=== PATIENT | male | born 1970 | race Caucasian/White ===

== ENCOUNTER 2020-05-15 10:11 | Emergency (ER) | payer BC ==
--- NOTE | 2020-05-15 11:04 | TELE ---
HPI Do you have fever,cough or shortness of breath?: No - General Reason For Visit: COLVID 19 TEST History Source: Patient Exam Limitations: No Limitations - History of Present Illness 05/15/20 11:01 Patient is a 49-year-old male who participated in a virtual urgent care visit for Covid testing. He states his daughter was in school and was in contact with somebody with Covid and then was at his house the same day. He is concerned because he has now had Covid exposure. The patient has a history of non- Hodgkin's lymphoma 15 years ago but states he is now cured. He denies any symptoms at all. He denies any recent travel outside of the in the last 30 days, or outside of [facility] within the last 15 days. The patient denies other medical history or allergies to medications. Review of Systems - Review of Systems Comments:: 05/15/20 11:02 - Review of Systems Able to Perform ROS?: Yes Constitutional: No: Fever, Chills, Loss of Appetite, Night Sweats, Weakness; positive: Covid exposure, Covid testing HEENTM: No: Eye Pain, Vision changes, Ear Pain, Throat Pain, Throat Swelling, Mouth Pain, Difficulty Swallowing Respiratory: No: Cough, Shortness of Breath, Wheezing, Sputum Production Cardiac (ROS): No: Chest Pain, Chest Tightness, Palpitations, Irregular Heart Beat, Edema ABD/GI: No: Nausea, Vomiting, Abdominal Pain, Diarrhea : No Dysuria, No Hematuria, No Frequency, No Urgency Musculoskeletal: No: Muscle Pain, Back Pain, Joint Pain, Muscle Weakness, Neck Pain Integumentary: No: Lesions, Rash Neurological: No: Headache, Numbness, Tingling, Weakness, Speech Difficulties *Physical Exam - Physical Exam 05/15/20 11:02 - Physical Exam General Appearance: Nourished, Appropriately Dressed, No Distress HEENT: EOMI, Normal Voice, Hearing Grossly Normal Neck: No Decreased range of motion Respiratory/Chest: Normal chest excursion appreciated, No Accessory Muscle Use Gastrointestinal/Abdominal: No distention Musculoskeletal: Normal Inspection Integumentary: Normal Color, Dry. No Rash Neurologic: renal dialysis rn II-XII NML intact, Fully Oriented, Alert, Normal Mood/Affect, Normal Response - Medical Decision Making 05/15/20 11:02 Assessment: Patient is a 49-year-old male who participated in a virtual urgent care visit for Covid testing after an exposure. Plan: -Covid swab ordered -Covid counseling given, isolation precautions reviewed -Patient to proceed to the [facility] for test -He understands and agrees this treatment plan Discharge Diagnosis at time of Disposition: Exposure to COVID-19 virus - Referrals - Patient Instructions Discharge Instructions: [facility] - Coronavirus Instructions, [facility] COVID-19 Isolation Protocol Additional Discharge Instructions: You were seen via a telehealth visit and tested for COVID today. You should follow isolation precautions as per [facility] guidelines. Thank you for participating in our telehealth medicine program. If you have any worsening symptoms such as high fever, shaking chills, profuse vomiting or any other worsening symptoms you should go to your local emergency department immediately or follow up with your primary care doctor immediately. If you become symptomatic: Take Tylenol 650 mg every 6 hours as needed for fever or pain. You may take Robitussin or other [id number] cough syrup. Follow the dosing in structions on the bottle. Warm tea, honey, and salt water gargles may help your symptoms. Please take precautions and self quarantine for 2 weeks and follow-up with your primary care doctor and the Department of Health. Return to the nearest emergency department for shortness of breath, difficulty breathing, chest pain, or if you have any changes in your symptoms. - Discharge Disposition: HOME Condition at time of Disposition: Stable
== END 2020-05-15 11:04 | disposition home or self-care (01) ==
LOC: JVIRT 10:11
DX: Z11.59 Encounter for screening for other viral diseases (principal)
CPT/HCPCS: C9803; Q3014-GT; U0003